=== PATIENT | female | born 1935 | race Caucasian/White ===

== ENCOUNTER 2020-03-28 18:02 | Observation (INO) ==
[2020-03-29] MEDS ORDERED: Ondansetron ODT 4 MG TAB.RAPDIS SL PRN (00:03)
[2020-03-29] MEDS ORDERED: Acetaminophen 325 MG TABLET PO PRN (00:03)
[2020-03-29] MEDS ORDERED: Naloxone 0.4 MG/ML INJ IVP PRN (00:03)
[2020-03-29] MEDS ORDERED: *HR* Dextrose 50 % in Water (Vial) 50 ML VIAL IVP PRN (00:46)
[2020-03-29] MEDS ORDERED: D5% in Water 1,000 ML IVC PRN (00:46)
[2020-03-29] MEDS ORDERED: Dextrose Gel 15 GM/37.5 ML TUBE PO PRN ×2 (00:46)
[2020-03-29] MEDS: 0.9 % Sodium Chloride 1,000 ML IVC SCH ×2 (01:31→15:21)
[2020-03-29] MEDS: Insulin LISPRO 300 UNITS/3 ML VIAL SUBQ SCH ×4 (01:32→18:13)
[2020-03-29 04:23] LABS: Eosinophils # 0.1 K/mcL (0.0-0.6); Eosinophils % 2.9 %; Hematocrit 26.9 % (35.3-44.9); Immature Granulocytes % 0.4 % (0-4); Lymphocytes % 60.2 %; Mean Corpuscular HGB Conc 33.5 g/dL (31.6-35.5); Mean Corpuscular Volume 89.7 fL (83.0-100.0); Mean Platelet Volume 10.2 fL (9.4-12.4); Monocytes # 0.2 K/mcL (0.0-1.3); Monocytes % 9.1 %; Neutrophils # 0.7 K/mcL (1.6-8.9); Red Cell Distribution Width 15.9 % (11.5-14.5); Segmented Neutrophils % 27.4 %; White Blood Count 2.4 K/mcL (4.3-11.1)
[2020-03-29 04:30] LABS: INR 1.5; Prothrombin Time 17.1 Seconds (9.4-12.1)
[2020-03-29 04:45] LABS: % Iron Saturation 92 % (15-50); Alanine Aminotransferase 33 Units/L (7-52); Albumin 3.1 g/dL (3.5-5.7); Albumin/Globulin Ratio 1.4 (1.1-2.2); Alkaline Phosphatase 65 Units/L (34-104); Aspartate Amino Transferase 24 Units/L (13-39); BUN/Creatinine Ratio 20 (6-26); Bilirubin,Total 1.3 mg/dL (0.3-1.0); Blood Urea Nitrogen 17 mg/dL (8-23); Calcium 8.9 mg/dL (8.6-10.3); Carbon Dioxide 30 mEq/L (23-29); Chloride 103 mEq/L (98-107); Globulin 2.2 g/dL (2.4-3.5); Glucose 120 mg/dL (70-105); Iron 189 mcg/dL (50-170); Magnesium 1.2 mg/dL (1.6-2.6); Osmolality,Calculated 291 (280-300); Phosphorous 2.6 mg/dL (2.7-4.5); Potassium 3.7 mEq/L (3.5-5.1); Sodium 139 mEq/L (136-145); Total Protein 5.3 g/dL (6.4-8.9); Transferrin 146 mg/dL (203-362); eGFR For African Americans > 60 (> 60); eGFR For Non-African Americans > 60 (> 60)
[2020-03-29 04:58] LABS: Ferritin 1108 ng/mL (10-120)
[2020-03-29 05:26] LABS: Lymphocytes # 1.4 K/mcL (0.6-4.6)
[2020-03-29 05:27] LABS: Platelet Count 10 K/mcL (140-400)
[2020-03-29 05:28] LABS: Platelet Estimate Marked Decrease (Normal)
[2020-03-29] MEDS ORDERED: 0.9 % Sodium Chloride 250 ML ONE ×2 (08:26→11:24)
[2020-03-29] MEDS ORDERED: Oxymetazoline Nasal SPRAY BOTTLE NS PRN (09:45)
[2020-03-29 12:06] LABS: Bilirubin,Urine Negative (Negative); Blood,Urine Negative (Negative); Clarity,Urine Clear (Clear); Color,Urine Light-Yellow (Yellow); Glucose,Urine (UA) Normal (Normal); Ketones,Urine Negative (Negative); Leukocyte Esterase,Urine Negative (Negative); Nitrite,Urine Negative (Negative); PH,Urine 7.5 pH Units (5.0-8.0); Protein,Urine Negative (Neg-Trace); Specific Gravity,Urine 1.011 (1.010-1.025); Urobilinogen,Urine Normal (Normal)
[2020-03-29 16:45] LABS: Eosinophils # 0.1 K/mcL (0.0-0.6); Eosinophils % 2.1 %; Hematocrit 26.9 % (35.3-44.9); Hemoglobin 8.9 g/dL (11.5-15.4); Immature Platelets 3.1 % (1.1-6.1); Lymphocytes # 1.4 K/mcL (0.6-4.6); Lymphocytes % 59.4 %; Mean Corpuscular HGB Conc 33.1 g/dL (31.6-35.5); Mean Corpuscular Hemoglobin 29.6 pg (28.0-33.3); Mean Corpuscular Volume 89.4 fL (83.0-100.0); Mean Platelet Volume 10.6 fL (9.4-12.4); Monocytes # 0.3 K/mcL (0.0-1.3); Monocytes % 12.8 %; Neutrophils # 0.6 K/mcL (1.6-8.9); Red Blood Count 3.01 M/mcL (3.82-4.97); Red Cell Distribution Width 15.7 % (11.5-14.5); Segmented Neutrophils % 25.7 %; White Blood Count 2.3 K/mcL (4.3-11.1)
[2020-03-29 16:54] LABS: Platelet Count 26 K/mcL (140-400)
[2020-03-29 17:21] LABS: Microcytosis Present (Not Present); Platelet Estimate Marked Decrease (Normal); Reactive Lymphocytes Present (Not Present)
[2020-03-29] MEDS ORDERED: Insulin LISPRO 300 UNITS/3 ML VIAL SUBQ SCH (21:00)
[2020-03-30 02:05] LABS: Mean Corpuscular Hemoglobin 29.7 pg (28.0-33.3); Red Cell Distribution Width 15.7 % (11.5-14.5)
[2020-03-30 02:07] LABS: Eosinophils # 0.1 K/mcL (0.0-0.6); Hematocrit 28.1 % (35.3-44.9); Hemoglobin 9.3 g/dL (11.5-15.4); Immature Platelets 2.8 % (1.1-6.1); Mean Corpuscular HGB Conc 33.1 g/dL (31.6-35.5); Mean Corpuscular Volume 89.8 fL (83.0-100.0); Mean Platelet Volume 10.7 fL (9.4-12.4); Red Blood Count 3.13 M/mcL (3.82-4.97); White Blood Count 3.1 K/mcL (4.3-11.1)
[2020-03-30 02:17] LABS: Platelet Count 25 K/mcL (140-400)
[2020-03-30 02:18] LABS: BUN/Creatinine Ratio 19 (6-26); Blood Urea Nitrogen 14 mg/dL (8-23); Calcium 8.4 mg/dL (8.6-10.3); Carbon Dioxide 29 mEq/L (23-29); Chloride 104 mEq/L (98-107); Glucose 114 mg/dL (70-105); Osmolality,Calculated 291 (280-300); Potassium 3.5 mEq/L (3.5-5.1); Sodium 140 mEq/L (136-145); eGFR For African Americans > 60 (> 60); eGFR For Non-African Americans > 60 (> 60)
[2020-03-30 02:46] LABS: Lymphocytes # 1.7 K/mcL (0.6-4.6); Monocytes # 0.1 K/mcL (0.0-1.3); Neutrophils # 1.2 K/mcL (1.6-8.9); Platelet Estimate Marked Decrease (Normal); Reactive Lymphocytes Present (Not Present); Smudge Cells Present (Not Present); Toxic Granulation Present (Not Present)
[2020-03-30] MEDS: Insulin LISPRO 300 UNITS/3 ML VIAL SUBQ SCH ×2 (08:02→12:01)
[2020-03-30] MEDS ORDERED: lisinopriL 5 MG TABLET PO SCH (09:00)
[2020-03-30] MEDS ORDERED: Folic Acid 1 MG TABLET PO SCH (09:00)
[2020-03-30 11:16] VITALS: BP 129/82
== END 2020-03-30 14:30 | disposition home or self-care (01) ==
LOC: CDU → SUATTDRO 22:38
PROVIDERS: ADMIT Internal Medicine; ATTEND Family Medicine